=== PATIENT | male | born 1975 | race Caucasian/White ===

== ENCOUNTER 2020-07-17 13:34 | Emergency (ER) | payer OTHER ==
[~2020-07-17] VITALS: Ht 182.9 cm; Wt 95.5 kg
[~2020-07-17 13:34] MED LIST: ATE25T PO; NO HOME MEDS
[2020-07-17 13:58] VITALS: BP 140/93
--- NOTE | 2020-07-17 14:09 | NUR ---
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 PT WALKS OUT TO THE HOSPITALS ROUND ABOUT AND IS SEEN BY THIS NURSE GET IN A CAR DRIVEN BY A FEMALE AND THEN DRIVES AWAY.
--- NOTE | 2020-07-17 14:12 | NUR ---
PROVIDER WILKERSON IS INFORMED OF THE PT LEAVING AND GETTING INTO A CAR AND IS DRIVEN AWAY.
== END 2020-07-17 14:15 | disposition left against medical advice (07) ==
LOC: ER 13:34
DX: F10.139 Alcohol abuse with withdrawal, unspecified (principal); Z53.21 Procedure and treatment not carried out due to patient leaving prior to being seen by health care provider